=== PATIENT | female | born 1965 | race African-American/Black ===

== ENCOUNTER 2018-07-13 17:46 | Emergency (ER) | payer MEDICAID ==
[~2018-07-13] VITALS: Ht 162.6 cm; Wt 61.0 kg
[2018-07-14 01:45] VITALS: BP 126/76
[2018-07-14] MEDS ORDERED: HYDROCORTISONE ACETATE 25MG SUPP PR SCH (09:00)
== END 2018-07-14 02:03 | disposition home or self-care (01) ==
LOC: ER 17:46
DX: K62.89 Other specified diseases of anus and rectum (principal); K64.9 Unspecified hemorrhoids; F17.200 Nicotine dependence, unspecified, uncomplicated; F20.9 Schizophrenia, unspecified; Z59.0 Homelessness
CPT/HCPCS: 99283